=== PATIENT | female | born 1970 | race Caucasian/White ===

== ENCOUNTER 2023-07-19 15:08 | Emergency (ER) | payer OTHER, SELFPAY ==
[2023-07-19 15:09] VITALS: BMI 27.4
[2023-07-19 15:10] VITALS: BP 180/121
[2023-07-19 15:37] LABS: % Basophils 0.4 % (0-2); % Immature Granulocytes 0.5 % (0-0.5); % Lymphocytes 5.3 % (20.5-51.1); % Monocytes 2.8 % (1.7-9.3); Absolute Basophils 0.1 10^3/uL (0-0.2); Absolute Immature Granulocytes 0.1 10^3/uL (0-0.05); Absolute Lymphocytes 0.9 10^3/uL (1.2-3.4); Absolute Monocytes 0.5 10^3/uL (0.1-0.6); Absolute Neutrophils 15.9 10^3/uL (1.4-6.5); Hematocrit 46.1 % (37.0-47.0); Hemoglobin 15.3 g/dL (12.0-16.0); Mean Corp Hgb Conc. 33.2 g/dL (33.0-37.0); Mean Corpuscular Hgb 29.4 pg (27.0-31.0); Mean Corpuscular Volume 88.7 fL (81.0-99.0); Mean Platelet Volume 9.3 fL (7.4-10.4); Nucleated Red Blood Cells % 0 %; Platelet Count 371 10^3/uL (130-400); Red Cell Dist. Width 13.4 % (11.5-14.5); White Blood Cell Count 17.5 10^3/uL (4.8-10.8)
[2023-07-19 15:50] LABS: AST (SGOT) 35 U/L (14-36); Albumin 5.2 g/dl (3.5-5.0); Blood Urea Nitrogen 12 mg/dl (7-17); Calcium 10.4 mg/dl (8.4-10.2); Carbon Dioxide 21 mmol/L (22-30); Chloride 102 mmol/L (98-107); Glucose 158 mg/dl (70-99); Phosphorus 2.7 mg/dl (2.5-4.5); Potassium 4.6 mmol/L (3.5-5.1); Sodium 139 mmol/L (135-145); Total Bilirubin 0.5 mg/dl (0.2-1.3); Total Protein 8.6 g/dl (6.3-8.2); eGFR > 60.00
--- NOTE | 2023-07-19 16:04 | ED.GENMED ---
History of Present Illness
General
Chief Complaint: Abnormal Lab Value
Source: patient and family
Exam Limitations: none
Time Seen by Provider: 07/19/23 15:56
Nursing documentation reviewed up to this point in time: agreed with
Travel History
Have you had any contact with someone who has COVID-19?: No
Do you have any symptoms of coronavirus? Fever > 100 degrees, chills, cough, shortness of breath, sore throat, loss of taste or smell, muscle aches, or headache?: No
History of Present Illness
History of Present Illness:
52-year-old female with history of GERD, HTN, kidney stones, anxiety presents retching. States she's had cramping in legs and arches of feet, chills, n/v, she presents stating 'hypophosphatemia.'
Has had 'phosphate problems' since she had a kidney stone 4 years ago. Followed by Tyler Perez in [place].
Last Wednesday had a colonoscopy and endoscopy, from there she was transported by EMS to [facility] due to persistent hypertension., She was admitted there for hypertensive urgency.
Went home 8 days ago on a 5 day regimen of Neutra Phos 250 which she finished 3 days ago. She had lab work 2 days ago and she states her Phosphorous was 3.5
She feels she is worse due to stopping the Phosphorous 3 days ago. She was 'okay' until 2 days ago when she had a chocolate cake pop and she states whenever she eats chocolate her GERD gets significantly worse and after eating that, she started
vomiting.
Yesterday feeling a little better she ate a brownie and started vomiting again.
Admits chocolate aggravates her GERD significantly
Sister with her states that she went to see her today to find her retching and vomiting.
'Just give me some Phosphorus and I'll be fine, you'll see.'
No recent antibiotics, no recent travel.
Meds:
Metoprolol 25 mg
Omeprazole
Neutra Phos 250 (2 days ago, finished 5 day regimen of 1 pill 3 x daily)
Past History
Past History
ED Past Medical History: GERD, HTN, Other (Kidney stone, anxiety) and Other (Hypophosphatemia)
ED Past Surgical History: Gynecological and Other (lithotripsy)
Social History
Tobacco: Non-smoker
Alcohol: Occasional
Drug: Marijuana
Personal: Single
Living: alone
Employment: Employed
Review of Systems
Review of Systems
Allergies reviewed?: Yes
All Other Systems: ROS reviewed and negative except as documented in HPI and ROS
Constitutional: Denies fever
Respiratory: Denies trouble breathing
Cardiac: Denies chest pain
ABD/GI: Reports nausea and vomiting; Denies abdominal pain, diarrhea, bloody stools or black stools
: Denies dysuria, difficulty voiding or urgency
Musculoskeletal: Reports other (general body aches, cramping in calves and feet.)
Skin: Reports no symptoms
Neurological: Reports no symptoms
Phy Exam
Physical Exam
Physical Exam:
GENERAL: Actively vomiting. A&Ox3.
CONSTITUTIONAL: Afebrile.
EYES: PERRL, conjunctivae normal
ENMT: moist mucus membranes, Pharynx nl
RESPIRATORY: Regular respirations, nonlabored, lungs clear.
CARDIOVASCULAR: Regular rate and rhythm, no murmurs, no rubs.
GI: Soft, nontender, normal BS
MUSCULOSKELETAL: Moves with ease. Well perfused.
SKIN: Warm, dry, pink
PSYCH: Anxious mood and affect. Well kept, interactive and appropriate
NEUROLOGIC: Awake, alert and oriented. No focal neurological deficits
Course
Orders/Labs/Results
Orders:
Orders
07/19/23 15:22
Complete Blood Count/With Diff Urgent
Comprehensive Metabolic Panel Urgent
Phos [Phosphorus] Urgent
07/19/23 16:03
Ondansetron Injectable [Zofran] 4 mg IV NOW STA
Pantoprazole [Protonix IV] 80 mg IV NOW STA
07/19/23 16:04
0.9% Sodium Chloride 1000 ml [Nss] 1,000 ml IV BOLUS
07/19/23 17:22
Diphenhydramine [Benadryl] 50 mg IM NOW STA
Prochlorperazine [Compazine] 10 mg IV NOW STA
07/19/23 17:26
Diphenhydramine [Benadryl] 50 mg IV NOW STA
07/19/23 17:33
Urinalysis Reflex To Culture Urgent
Date Specimen was Collected: 07/19/23
Time Specimen was Collected: 17:31
Urine Microscopic Reflex Cult Urgent
Urine Culture Urgent
WILLIE Source: U
Specimen Description:
Date Specimen was Collected: 07/19/23
Time Specimen was Collected: 17:31
07/19/23 18:00
Sodium/Potassium Phosphate Mix [Neutra-Phos Powder Packet] 250 mg PO PCHS
07/19/23 18:58
Labetalol HCl [Trandate] 10 mg IV NOW STA
Abnormal Lab Results
07/19/23 07/19/23
15:22 17:33
WBC 17.5 H 10^3/uL
(4.8-10.8)
Abs Immat Gran (auto) 0.1 H 10^3/uL
(0-0.05)
Absolute Neuts (auto) 15.9 H 10^3/uL
(1.4-6.5)
Absolute Lymphs (auto) 0.9 L 10^3/uL
(1.2-3.4)
Neutrophils % 91.0 H %
(42.2-75.2)
Lymphocytes % 5.3 L %
(20.5-51.1)
Carbon Dioxide 21 L mmol/L
(22-30)
Glucose 158 H mg/dl
(70-99)
Calcium 10.4 H mg/dl
(8.4-10.2)
Total Protein 8.6 H g/dl
(6.3-8.2)
Albumin 5.2 H g/dl
(3.5-5.0)
Urine Ketones 1+ A
(Negative)
Ur Occult Blood Reflex Trace A
(Negative)
Urine RBC 7-10 A /HPF
(0-2)
Urine Bacteria (Reflex) Many A
(Negative)
Urine Glucose 1+ A
(Negative)
07/19/23 15:22
07/19/23 15:22
Vital Signs
Initial and Last Documented VS:
Initial Vital Signs
Temp Pulse Resp BP Pulse Ox
97.8 F 110 18 180/121 98
07/19/23 15:10 07/19/23 15:10 07/19/23 15:10 07/19/23 15:10 07/19/23 15:10
Last Documented Vital Signs
Temp Pulse Resp BP Pulse Ox
97.8 F 91 17 164/79 98
07/19/23 15:10 07/19/23 20:31 07/19/23 20:31 07/19/23 20:31 07/19/23 15:10
MDM/Problems Addressed
Differential Diagnosis Includes:
Gastroenteritis, Hypertensive urgency, hypophosphatemia
MDM/Problems Addressed:
52-year-old female with history of GERD, HTN, kidney stones, anxiety presents retching. States she's had cramping in legs and arches of feet, chills, n/v, she presents stating 'hypophosphatemia.'
Has had 'phosphate problems' since she had a kidney stone 4 years ago. Followed by [facility] Perez in [place].
Last Wednesday had a colonoscopy and endoscopy, from there she was transported by EMS to [facility] due to persistent hypertension., She was admitted there for hypertensive urgency.
Went home 8 days ago on a 5 day regimen of Neutra Phos 250 which she finished 3 days ago. She had lab work 2 days ago and she states her Phosphorous was 3.5
She feels she is worse due to stopping the Phosphorous 3 days ago. She was 'okay' until 2 days ago when she had a chocolate cake pop and she states whenever she eats chocolate her GERD gets significantly worse and after eating that, she started
vomiting.
Yesterday feeling a little better she ate a brownie and started vomiting again.
Admits chocolate aggravates her GERD significantly
Sister with her states that she went to see her today to find her retching and vomiting.
'Just give me some Phosphorus and I'll be fine, you'll see.'
No recent antibiotics, no recent travel.
4:15 p.m
CBC WBC 17.5 most likely from stress reaction to significant vomiting.
CMP: No clinically significant abnormality
UA negative for infection
5:15 PM
After IV fluids and Zofran patient rested for wall but is now complaining of nausea again and starting to retch.
Compazine and Benadryl given
Also given a dose of Neutra-Phos to 50 mg
7:00 PM
Patient's blood pressure has been high during entire visit, it is now 174/107
Labetalol 10 mg IV ordered.
She is to follow up with Dr. Gifford for her BP
*Critical Care Note
Total Time (30-74mins, 75-104mins- exclusive of procedures): Not Applicable
ED Attending Note
-
Portions of this chart may have been created with voice recognition software.� Occasional wrong word or��sound alike� substitutions may have occurred due to the inherent limitations of voice recognition software.
Discharge Plan
Departure
Patient Disposition: Home (Routine Discharge)
Date of Disposition: 07/19/23
Time of Disposition: 20:42
Patient with high blood pressure during this ER visit?: Yes
Condition: Good
Discharge Problem:
Gastroenteritis, HBP (high blood pressure)
Instructions: Nausea and Vomiting, Adult ED, BLOOD PRESSURE
Prescriptions:
New
R-Qeqx-Sayzlsp 250 mg tablet
1 tab PO DAILY Qty: 15 0RF
promethazine 25 mg suppository
25 mg IA Q6H PRN (Reason: nausea and vomiting) Qty: 10 0RF
No Action
venlafaxine 75 mg Capsule,Extended Release 24hr
75 mg PO HS
metoprolol succinate 25 mg Tablet Extended Release 24 Hr
25 mg PO HS
Patient Comments:
07/19/2023, pt. took one tablet this morning but normally takes it HS.
cholecalciferol (vitamin D3) 25 mcg (1,000 unit) Tablet
50 mcg PO DAILY
Visbiome 112.5 billion cell Capsule
2 cap PO DAILY
Patient Comments:
07/19/2023, Provitalize Probiotic.
omeprazole 20 mg Tablet,Delayed Release (Dr/Ec)
40 mg PO DAILY
Referrals:
Balta Dickey [Other] - Follow up in 5-7 days
Kamryn Bernardo MD [Consulting Staff] - Next open appointment
Activity Restrictions/Additional Instructions:
As we discussed, I sent a prescription to your pharmacy for Phosphate supplement and Phenergan suppositories to use if needed for nausea and vomiting.
Have your phosphorous and WBC's rechecked in 4 days
Call your doctor and make appointment for 7-10 days to discuss any need for further evaluation about your phosphorous and for your BP check
I have provided you the information of an Bleaching Machine Operator you may use to evaluate low phosphate
Include foods high in phosphate in your diet. Foods high in phosphate include lean meats, poultry, eggs, seafood, beans, peas, lentils, nuts and seeds and soy products.
Your blood pressure was high here. You were given Labetolol 10 mg IV.
Take your Metoprolol when you get home.
Interventions
Interventions:
*Risk Screen - Suicide Last Done: 07/19/23 15:13
*General Assessment Last Done: 07/19/23 15:13
*Neglect/Abuse Screening Last Done: 07/19/23 15:13
ED- Fall Risk Assessment Last Done: 07/19/23 20:44
*ED COVID-19 Vaccine History Last Done: 07/19/23 20:44
*Nursing Disposition Last Done: 07/19/23 20:44
Discharge Date and Time
Discharge Date/Time: 07/19/23 20:45
Print Language: THAI
[2023-07-19] MEDS: NSS 1000 IV (16:08)
[2023-07-19 16:10] LABS: Alkaline Phosphatase 121 U/L (38-126)
[2023-07-19] MEDS: ZOFRAN 4 MG IV (16:14)
[2023-07-19] MEDS: PROTONIX IV 80 MG IV (16:14)
[2023-07-19 16:24] LABS: ALT (SGPT) 35 U/L (0-35)
[2023-07-19 17:00] VITALS: BP 187/97
[2023-07-19] MEDS: NEUTRA-PHOS POWDER PACKET 250 MG PO (17:12)
[2023-07-19] MEDS: COMPAZINE 10 MG IV (17:26)
[2023-07-19] MEDS: BENADRYL 50 MG IV (17:27)
[2023-07-19 17:52] LABS: Urine Albumin Trace (Neg - Trace); Urine Bilirubin Negative (Negative); Urine Character Clear (Clear); Urine Color Yellow; Urine Glucose 1+ (Negative); Urine Ketone 1+ (Negative); Urine Leukocyte Negative (Negative); Urine Nitrite Negative (Negative); Urine Occult Blood Trace (Negative); Urine Urobilinogen Negative (Neg - 1+)
[2023-07-19 18:05] LABS: Urine Mucus Many
[2023-07-19 18:07] LABS: Urine Bacteria Many (Negative)
[2023-07-19 19:00] VITALS: BP 185/106
[2023-07-19 19:08] VITALS: BP 174/107
[2023-07-19] MEDS: TRANDATE 10 MG IV (19:11)
[2023-07-19 20:00] VITALS: BP 187/90
[2023-07-19 20:31] VITALS: BP 164/79
== END 2023-07-19 20:45 | disposition home or self-care (01) ==
LOC: EMR 15:08
PROVIDERS: Registered Nurse; EMERGENCY PHYSICIAN Emergency Medicine
DX: K52.9 Noninfective gastroenteritis and colitis, unspecified (principal); I10 Essential (primary) hypertension; R25.2 Cramp and spasm; K21.9 Gastro-esophageal reflux disease without esophagitis; F41.9 Anxiety disorder, unspecified; E83.39 Other disorders of phosphorus metabolism; Z87.442 Personal history of urinary calculi; Z88.1 Allergy status to other antibiotic agents
CPT/HCPCS: 99284; 96374; 96375 ×4; 96361; 80053; 81003; 81015; 84100; 85025; 87086

== ENCOUNTER → 2023-07-23 13:53 | Outpatient (REF) | payer OTHER, SELFPAY ==
[2023-07-23 15:03] LABS: % Eosinophils 4.5 % (0-6); % Immature Granulocytes 0.4 % (0-0.5); % Lymphocytes 35.2 % (20.5-51.1); % Monocytes 9.1 % (1.7-9.3); % Neutrophils 49.8 % (42.2-75.2); Absolute Basophils 0.1 10^3/uL (0-0.2); Absolute Eosinophils 0.4 10^3/uL (0-0.7); Absolute Lymphocytes 2.8 10^3/uL (1.2-3.4); Absolute Monocytes 0.7 10^3/uL (0.1-0.6); Hemoglobin 12.3 g/dL (12.0-16.0); Mean Corp Hgb Conc. 33.2 g/dL (33.0-37.0); Mean Corpuscular Hgb 29.2 pg (27.0-31.0); Mean Corpuscular Volume 87.9 fL (81.0-99.0); Mean Platelet Volume 9.6 fL (7.4-10.4); Nucleated Red Blood Cells % 0 %; Platelet Count 331 10^3/uL (130-400); Red Blood Cell Count 4.21 10^6/uL (4.20-5.40); Red Cell Dist. Width 13.4 % (11.5-14.5)
[2023-07-23 15:30] LABS: ALT (SGPT) 20 U/L (0-35); AST (SGOT) 21 U/L (14-36); Albumin 3.9 g/dl (3.5-5.0); Alkaline Phosphatase 84 U/L (38-126); Blood Urea Nitrogen 17 mg/dl (7-17); Calcium 9.4 mg/dl (8.4-10.2); Carbon Dioxide 27 mmol/L (22-30); Chloride 105 mmol/L (98-107); Glucose 90 mg/dl (70-99); HDL Cholesterol 57 mg/dl; LDL Cholesterol, Calculated 156 mg/dl; Magnesium 2.1 mg/dl (1.6-2.3); Phosphorus 3.5 mg/dl (2.5-4.5); Potassium 4.6 mmol/L (3.5-5.1); Sodium 138 mmol/L (135-145); Total Bilirubin 0.6 mg/dl (0.2-1.3); Total Cholesterol 236 mg/dl (50-199); Total Protein 6.3 g/dl (6.3-8.2); Triglyceride 118 mg/dl (10-149); Very Low Density Lipoprotein 23 mg/dl (0-30); eGFR > 60.00
[2023-07-23 15:44] LABS: Vitamin D, 25-OH*** 41.6 ng/mL (30-80)
[2023-07-23 15:57] LABS: TSH 0.68 uIU/ml (0.47-4.68)
[2023-07-24 09:18] LABS: Glycohemoglobin (HgbA1c) 5.8 % (4.0-5.6)
[2023-07-24 09:19] LABS: Intact PTH 62.9 pg/ml (13.6-85.8)
== END ==
LOC: REG 13:53
PROVIDERS: ATTENDING PHYSICIAN Registered Nurse; FAMILY PHYSICIAN Internal Medicine; REFERRING PHYSICIAN Internal Medicine
DX: K21.9 Gastro-esophageal reflux disease without esophagitis (principal); E83.39 Other disorders of phosphorus metabolism
CPT/HCPCS: 36415; 80053; 80061; 82306; 83036; 83735; 83970; 84100; 84443; 85025

== ENCOUNTER → 2023-07-27 10:49 | Outpatient (REF) | payer OTHER, SELFPAY ==
[2023-07-27 13:26] LABS: Urine Calcium 12.7 mg/dl
[2023-07-27 13:49] LABS: Urine Uric Acid 30.5 mg/dl
[2023-07-27 13:50] LABS: 24 Hour Urine Calcium 215.9 mg/day; 24 Hour Urine Creatinine 1.286 gm/day (0.8-1.8); 24 Hour Urine Total Volume 1700 ml
== END ==
LOC: REG 10:49
PROVIDERS: ATTENDING PHYSICIAN Internal Medicine
DX: E83.39 Other disorders of phosphorus metabolism (principal)
CPT/HCPCS: 81050; 82340; 82570; 83945; 84560